=== PATIENT | male | born 1995 | race Caucasian/White ===

== ENCOUNTER 2017-04-11 17:19 | Emergency (ER) | payer OTHER ==
[~2017-04-11] VITALS: Ht 177.8 cm; Wt 59.0 kg
[~2017-04-11 17:19] MED LIST: 'PARAFON FORTE500 M1 PO; CIPRO250 MG PO; HYDROCODONE BIT1 T11 PO; MIRALAX POWDER17 G1 PO; NAPROSYN500 MG PO; Peridex 473 ML473 ML PO
[2017-04-11] MEDS ORDERED: Motrin,Rufen800 MG PO (18:05)
== END 2017-04-11 18:11 | disposition home or self-care (01) ==
LOC: ED 17:19
DX: S01.81XA Laceration without foreign body of other part of head, initial encounter (principal); F17.200 Nicotine dependence, unspecified, uncomplicated; Z88.0 Allergy status to penicillin; Z88.1 Allergy status to other antibiotic agents; Z88.6 Allergy status to analgesic agent; W22.8XXA Striking against or struck by other objects, initial encounter; Y93.89 Activity, other specified; Y92.89 Other specified places as the place of occurrence of the external cause; Y99.8 Other external cause status

== ENCOUNTER 2023-12-12 03:49 | Inpatient (IN) | payer SELFPAY ==
[~2023-12-12] VITALS: Ht 175.3 cm; Wt 58.2 kg
[2023-12-12] VITALS (7 sets, daily range): BP systolic 100–124; BP diastolic 49–83
[~2023-12-12 03:49] MED LIST changes: +Motrin,Rufen800 MG PO
[2023-12-12] MEDS ORDERED: SODIUM CHLORIDE 0.9% 1,000 ML IV ONE ×2 (04:35→14:05)
[2023-12-12 04:55] LABS: BASO % 0.2 % (0.0-1.0); EOS % 0.1 % (1.0-4.0); LYMPH # 1.2 10*3/uL (1.3-4.4); LYMPH % 8.8 % (27.0-41.0); MEAN CELL VOLUME 94.4 fl (80.0-94.0); MEAN CORPUSCULAR HGB 31.5 pg (27.0-31.0); MEAN CORPUSCULAR HGB CONC 33.4 g/dl (33.0-37.0); MEAN PLATELET VOLUME 9.4 fl (9.6-12.3); MONO # 0.5 10*3/uL (0.1-1.0); MONO % 3.6 % (3.0-9.0); NEUT # 11.5 10*3/uL (2.3-7.9); NEUT % 86.8 % (47.0-73.0); PLATELET COUNT AUTOMATED 212 10*3/uL (130-400); RED BLOOD COUNT 4.98 10*6/uL (4.50-5.90); RED CELL DISTRI WIDTH 12.9 % (0-14.5); WHITE BLOOD COUNT 13.2 10*3/uL (4.8-10.8)
[2023-12-12 05:17] LABS: ALKALINE PHOSPHATASE 137 U/L (46-116); BUN 20 mg/dl (9-23); CHLORIDE 100 mmol/L (98-107); CPK 521 U/L (34-171); POTASSIUM 3.9 mmol/L (3.4-5.1); SGPT/ALT 292 U/L (5-49); TOTAL PROTEIN 7.9 gm/dL (6.0-8.0)
[2023-12-12 05:31] LABS: ETHYL ALCOHOL < 3.0 mg/dl (<3)
[2023-12-12] MEDS ORDERED: Ondansetron Hydrochloride 4 MG/2 ML VIAL IV PRN (10:05)
[2023-12-12] MEDS ORDERED: IBUPROFEN 400 MG TAB PO ONE (20:35)
[2023-12-13] VITALS: BP 111/54
[2023-12-13 08:00] VITALS: BP 119/66
[2023-12-13] MEDS ORDERED: Enoxaparin Sodium 40 MG/0.4 ML SYR SC SCH (10:00)
[2023-12-13 12:00] VITALS: BP 112/76
== END 2023-12-13 14:07 | disposition home or self-care (01) | DRG 71 ==
LOC: ED → EDBD 03:55 → EDHOLD 08:24 → 4E 12:36
PROVIDERS: Emergency Medicine; ADMIT Internal Medicine; ATTEND Internal Medicine
DX: G93.41 Metabolic encephalopathy (principal); E87.1 Hypo-osmolality and hyponatremia; M62.82 Rhabdomyolysis; R65.10 Systemic inflammatory response syndrome (SIRS) of non-infectious origin without acute organ dysfunction; T68.XXXA Hypothermia, initial encounter; D72.825 Bandemia; R74.01 Elevation of levels of liver transaminase levels; Z88.6 Allergy status to analgesic agent; Z88.1 Allergy status to other antibiotic agents; Z88.0 Allergy status to penicillin; X31.XXXA Exposure to excessive natural cold, initial encounter